=== PATIENT | male | born 1990 | race African-American/Black ===

== ENCOUNTER 2024-10-06 13:50 | Emergency (ER) | payer SELFPAY ==
[~2024-10-06] VITALS: Ht 177.8 cm; Wt 88.0 kg
[2024-10-06 13:52] VITALS: PULSE 78; RESP 18; TEMP 99
[2024-10-06] MEDS ORDERED: BENZONATATE100 MG PO (16:37)
[2024-10-06] MEDS ORDERED: AZITHROMYCIN250 MG PO (16:37)
[2024-10-06 17:06] VITALS: BP 121/68; PULSE 68; RESP 18; TEMP 98.3; O2SAT 98
== END 2024-10-06 17:00 | disposition home or self-care (01) ==
LOC: FSED 14:44
DX: R05.9 Cough, unspecified (principal); J40 Bronchitis, not specified as acute or chronic; A49.9 Bacterial infection, unspecified; R51.9 Headache, unspecified
CPT/HCPCS: 71046; 99284